=== PATIENT | female | born 1980 | race African-American/Black ===

== ENCOUNTER 2017-08-25 14:35 | Outpatient (CLI) | payer MEDICAID ==
--- NOTE | 2017-08-25 17:13 | RAD ---
THORACIC SPINE 3 VIEW: Date: 08/25/17 HISTORY: Back pain. COMPARISON: None. FINDINGS: No acute fracture or malalignment. Vertebral body height and disc spaces are maintained, aside from small degenerative space height loss of what appears to be at T12-L1. 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 No acute fracture or malalignment. POS: CYNDI
--- NOTE | 2017-08-25 17:14 | RAD ---
2 VIEWS LUMBAR SPINE: Date: 08/25/17 HISTORY: Low back pain. FINDINGS: There are five non-rib bearing lumbar-type vertebral bodies. The vertebral body heights and interver tebral disc spaces are within normal limits. No fracture or subluxation seen involving the lumbar sp ine. Osteophytes are seen at the T12-L1 level. IMPRESSION: No fracture or subluxation involving the lumbar spine. POS: CYNDI
== END 2017-08-25 14:36 | disposition home or self-care (01) ==
LOC: MADRAD 14:35
PROVIDERS: ATTEND Family Medicine
DX: M54.5 Low back pain (principal); M51.35 Other intervertebral disc degeneration, thoracolumbar region
CPT/HCPCS: 72072; 72100

== ENCOUNTER 2019-04-02 09:02 | Outpatient (CLI) | payer OTHER ==
--- NOTE | 2019-04-02 10:54 | ULT ---
PELVIC ULTRASOUND:: DATE: 04/02/2019. COMPARISON: None. HISTORY: Pelvic pain. TECHNIQUE: Multiplanar grayscale sonographic imaging of the pelvis obtained with transabdominal and endovaginal imaging. The ovaries are assessed with color flow and spectral analysis. FINDINGS: The uterus measures 7.5 x 6.1 x 7.4 cm. Endometrial stripe measures 1 cm, within normal limits for a premenopausal female. No free fluid is seen within the pelvis. There is a solid hypoechoic lesion within the mid portion of the uterus anteriorly measuring 2.3 x 2. 1 x 2.7 cm. A similar solid hypoechoic mass is seen posteriorly within the uterus measuring 2.6 x 1.7 x 2.1 cm. Findings suggest uterine fibroids. Blood flow is noted within both ovaries. Right ovary measures 3.0 x 2.1 x 2.2 cm and left ovary measu res 3.6 x 2.3 x 2.4 cm. There is a cyst within the right ovary measuring 2 cm. IMPRESSION: Findings suggesting uterine fibroid disease. No acute findings are noted. Transcribed Date/Time: 04/02/2019 11:11 AM
== END 2019-04-02 09:03 | disposition home or self-care (01) ==
LOC: MADULT 09:02
PROVIDERS: ATTEND Nurse Practitioner Family
DX: N94.6 Dysmenorrhea, unspecified (principal); D64.9 Anemia, unspecified; N92.1 Excessive and frequent menstruation with irregular cycle
CPT/HCPCS: 76856

== ENCOUNTER 2022-10-01 07:47 | Emergency (ER) | payer MEDICAID, OTHER, SELFPAY ==
[2022-10-01] MEDS ORDERED: Dexamethasone 4 MG TAB ONE (08:25)
== END 2022-10-01 08:53 | disposition home or self-care (01) ==
LOC: MADERS 07:47
DX: B34.9 Viral infection, unspecified (principal); F17.210 Nicotine dependence, cigarettes, uncomplicated
CPT/HCPCS: 87081; 87430; 87804; 99283; J8540

== ENCOUNTER 2024-11-04 15:31 | Emergency (ER) | payer BC | END 2024-11-04 17:17 | disposition home or self-care (01) | LOC: MADERS 15:31 | DX: J11.1 Influenza due to unidentified influenza virus with other respiratory manifestations (principal); F17.210 Nicotine dependence, cigarettes, uncomplicated | CPT/HCPCS: 87428; 99283 ==